=== PATIENT | male | born 1945 | race Caucasian/White ===

== ENCOUNTER 2020-06-12 10:29 | Emergency (ER) | payer MEDICARE, SELFPAY ==
--- NOTE | 2020-06-12 | ECG_ITS ---
Test Reason : PALPITATIONS Blood Pressure : / mmHG Vent. Rate : 088 BPM Atrial Rate : 088 BPM P-R Int : 144 ms QRS Dur : 088 ms QT Int : 334 ms P-R-T Axes : 077 -03 056 degrees QTc Int : 404 ms Normal sinus rhythm Possible Left atrial enlargement Borderline ECG No previous ECGs available Referred By: Terri Kang Electronically Signed By:TIERNEY ROMAN
[2020-06-12 10:36] VITALS: BP 143/85; PULSE 85; RESP 16; TEMP 36.7; O2SAT 100; BMI 22.7
--- NOTE | 2020-06-12 11:09 | XR_ITS ---
EXAMINATION: XR CHEST CLINICAL INFORMATION: Chest pain. COMPARISON: None. TECHNIQUE: Frontal view of the chest was obtained. FINDINGS: The lungs are well-expanded and clear of acute process. The heart size and pulmonary vascularity is normal. No gross bony abnormality seen. XR/XR chest 1V IMPRESSION: Unremarkable chest exam.
[2020-06-12 11:29] LABS: Basophils Absolute Auto 0.1 X10*3/uL (0.0-0.2); Basophils Percent Auto 0.7 % (0-2); Eosinophils Absolute Auto 0.2 X10*3/uL (0.0-0.4); Hematocrit 44.2 % (42-52); Hemoglobin 14.7 g/dl (14.0-18.0); Imm Gran Abs Auto 0.06 X10*3/uL (0.00-0.03); Imm Gran Pct Auto 0.9 % (0.0-0.4); Lymphocytes Absolute Auto 1.2 X10*3/uL (1.2-4.9); Lymphocytes Percent Auto 18.4 % (20-40); MANUAL DIFF FLAG NO; Mean Corpuscular HGB Conc 33.3 g/dl (31.0-36.0); Mean Corpuscular Hemoglobin 30.2 pg (27.0-33.0); Mean Corpuscular Volume 90.9 fL (80-98); Mean Platelet Volume 9.7 fL (9.4-12.4); Monocytes Absolute Auto 0.6 X10*3/uL (0.1-1.2); Monocytes Percent Auto 9.6 % (2-11); Neutrophils Absolute Auto 4.5 X10*3/uL (2.0-8.3); Neutrophils Percent Auto 67.4 % (45-73); Platelet Count 276 X10*3/uL (160-400); Red Blood Count 4.86 X10*6/uL (4.60-5.80); Red Cell Distribution Width 13.8 % (11.0-16.0); White Blood Count 6.7 X10*3/uL (4.8-10.8)
[2020-06-12 11:41] LABS: Prothrombin Time 11.5 SEC (10.8-13.0)
[2020-06-12 11:44] LABS: Partial Thromboplastin Time 32.8 SEC (24.1-38.0)
[2020-06-12 11:50] LABS: Glucose Urine UA NEG (NEG); Leukocyte Esterase Urine NEG (NEG); Nitrite Urine NEG (NEG); PH 5.5 (5.0-8.0); Specific Gravity - Urine >= 1.030 (1.005-1.025); Urine Blood NEG (NEG); Urine Ketones NEG (NEG); Urine Protein NEG (NEG-TRACE)
[2020-06-12 11:51] LABS: Appearance Urine CLEAR; Color Urine YELLOW
[2020-06-12 12:03] LABS: Alanine Aminotransferase 38 U/L (0-40); Albumin Level 4.2 g/dL (3.5-5.0); Alkaline Phosphatase 83 U/L (39-117); Anion Gap 12 (12-20); Aspartate Amino Transferase 24 U/L (5-37); Bilirubin Total 0.5 mg/dL (0.0-1.0); Blood Urea Nitrogen 19 mg/dL (9-16); Calcium 9.4 mg/dL (8.4-10.2); Carbon Dioxide 27 mmol/L (22-29); Chloride 104 mmol/L (96-108); Creatinine Clr Calc Pharmacy 71.8; Estimated Glomerular Filt Rate > 60; Glucose Random 94 mg/dL (60-115); Potassium 4.6 mmol/l (3.3-5.1); Sodium 138 mmol/L (135-145); Total Protein 6.7 g/dL (6.5-8.0)
[2020-06-12 12:03] LABS: Mucus Urine TRACE /LPF; RBC Urine 0 /HPF (0); Squamous Epithelial Cell Urine TRACE /LPF; WBC Urine 0 /HPF (0-4)
[2020-06-12 12:06] LABS: Influenza A PCR NEGATIVE (Negative); Influenza B PCR NEGATIVE (Negative); Resp Syncy Virus RNA Qual PCR NEGATIVE (Negative); SARS COV2 PCR INHOUSE NEGATIVE (Negative)
[2020-06-12 12:10] LABS: Troponin-I High Sensitivity < 3.5 ng/L (<3.5-35.0)
--- NOTE | 2020-06-12 12:34 | ED.GENADULT ---
HPI - General Adult General Chief complaint: General Medical Stated complaint: chest pain Time Seen by Provider: 06/12/20 10:36 Source: patient Mode of arrival: ambulatory Limitations: no limitations History of Present Illness HPI narrative: A 75-year-old male who describes himself as relatively healthy without any significant past medical history who states that he exercises on a regular bases runs about 1 hour in the morning in fact he ran 1 hours today who presents with complaint of substernal chest discomfort ongoing for the past 1 month or so states has not felt fully himself since he had a UTI about 2 years ago. Sometimes there is some epigastric indigestion and the discomfort has no associated aggravating/alleviating factors. Id states there is no shortness of breath when he runs for long distances. There is no nausea vomiting diarrhea. No abdominal pain. Onset (ago): month(s) Severity: mild Quality: aching Relieving factors: none Treatments prior to arrival: none Related Data Previous Rx's Medication Instructions Recorded omeprazole magnesium [Prilosec OTC] 20 mg PO BID 14 Days #28 tab 06/12/20 Allergies Allergy/AdvReac Type Severity Reaction Status Date / Time penicillin G Allergy Unknown Verified 03/01/19 00:00 Penicillins [PCN] Allergy Unknown HIVES Unverified 02/28/20 16:14 Review of Systems Review of Systems: Constitutional: No Weight loss, No Fever, No Chills, No Night Sweats, No Fatigue, No Malaise ENT/Mouth: No Hearing loss, No Ear Pain, No Nasal Congestion, No Sinus Pain, No Hoarseness, No sore throat, No Rhinorrhea, No Swallowing Difficulty Eyes: No Eye Pain, No Swelling, No Redness, No Foreign Body, No Discharge, No Vision Changes Cardiovascular: + Chest Pain, No SOB, No Dyspnea on Exertion, No Orthopnea, No Edema, No Palpitations Respiratory: No Cough, No Sputum, No Wheezing, No Smoke Exposure, No Dyspnea Gastrointestinal: No Nausea, No Vomiting, No Diarrhea, No Constipation, No abdominal Pain, No Hematochezia, No Melena Genitourinary: No Dysuria, No Urinary Frequency, No Hematuria, No Urinary Incontinence, No Urgency, No Flank Pain, No Urinary Flow Changes, No Hesitancy Musculoskeletal: No joint pain, No Myalgias, No Joint Swelling Skin: No Skin Lesions, No rash Neuro: No Weakness, No Numbness, No Paresthesias, No Loss of Consciousness, No Dizziness, No Headache Psych: No Social Issues Heme/Lymph: No Bruising, No Bleeding,No Lymphadenopathy Endocrine: No Polyuria, No Polydipsia, No Temperature Intolerance Yes all other systems are reviewed and are negative FOR[facility] Past Medical History Medical History (Updated 06/12/20 @ 13:12 by Edwar Reyes NP) No known health problems Social History Social History Alcohol intake: never Smoked in Last 30 Days: No Use of substances other than those prescribed or required for medical reasons: No Advance Directives: No Advance Directives Information Provided: No Physical Exam Vital Signs: Vital Signs: Last Vital Signs Temp 98.0 F 06/12/20 10:36 Pulse 85 06/12/20 10:36 Resp 16 06/12/20 10:36 BP 143/85 H 06/12/20 10:36 Pulse Ox 100 06/12/20 10:36 Body Mass Index 22.7 Reviewed Const: General: cooperative and healthy appearing; No acute distress or intoxicated appearing Nutritional Appearance: average body habitus Orientation/consciousness: patient oriented x3 HENMT: Head: Yes normal to inspection Ears: hearing grossly normal bilaterally Eyes: General: appearance normal, both eyes and all related structures Visual Mckeon: normal visual mckeon by confrontation Neck: Neck: Yes normal visual inspection, No positive Brudzinski's sign, No positive Kernig's sign and No tender Thyroid: Thyroid normal Chest: Chest palpation & inspection: normal inspection of the chest Resp: Effort & Inspection: normal respiratory effort Auscultation: clear to auscultation bilaterally Cardio: Jugular venous distension: no JVD Rhythm: regular rhythm Heart sounds: S1 normal heart sound present and S2 normal heart sound present GI: Inspection: Yes normal to inspection Palpation (GI): Soft to palpation Percussion: Yes normal to percussion Auscultation: normal bowel sounds : General: Yes no CVA tenderness Back/Spine/Pelvis: Back: no CVA tenderness Skin: General skin exam: no rashes or lesions noted Neuro: General: patient oriented x3 Extrem: General: Yes normal to inspection Course Course Course Narrative: Labs stable. D-dimer negative. Electrolytes without acute derangement. Tropes negative. D-dimer negative. SARSII/influenza/RSV negative. Will try short course PPI Instrum for close outpatient follow-up return follow-up instructions provided. Feels comfortable place. No acute discomfort to stay. Stable for discharge. Medical Decision Making MDM Narrative Medical decision making narrative: Labs, EKG, chest x-ray, COVID panel. Differential includes but not limited to musculoskeletal strain, costochondritis, ACS, PE less likely, cholelithiasis, gastroesophageal reflux disease. Lab Data Result diagrams: 06/12/20 11:21 06/12/20 11:21 Labs: Lab Results 06/12/20 06/12/20 06/12/20 Range/Units 11:15 11:16 11:20 WBC (4.8-10.8) X10*3/uL RBC (4.60-5.80) X10*6/uL Hgb (14.0-18.0) g/dl Hct (42-52) % MCV (80-98) fL MCH (27.0-33.0) pg MCHC (31.0-36.0) g/dl RDW (11.0-16.0) % Plt Count (160-400) X10*3/uL MPV (9.4-12.4) fL Immature Gran % (Auto) (0.0-0.4) % Neut % (Auto) (45-73) % Lymph % (Auto) (20-40) % [place] % (Auto) (2-11) % Eos % (Auto) (0-4) % Baso % (Auto) (0-2) % Lymph # (Auto) (1.2-4.9) X10*3/uL [place] # (Auto) (0.1-1.2) X10*3/uL Eos # (Auto) (0.0-0.4) X10*3/uL Baso # (Auto) (0.0-0.2) X10*3/uL Abs Immat Gran (auto) (0.00-0.03) X10*3/uL Absolute Neuts (auto) (2.0-8.3) X10*3/uL Absolute Nucleated RBC (0.0-0.012) X10*3/uL Nucleated RBC % (auto) (0.0-0.2) /100WBC PT (10.8-13.0) SEC INR (0.9-1.1) APTT (24.1-38.0) SEC D-Dimer NG/ML Sodium (135-145) mmol/L Potassium (3.3-5.1) mmol/l Chloride (96-108) mmol/L Carbon Dioxide (22-29) mmol/L Anion Gap (12-20) BUN (9-16) mg/dL Creatinine (0.5-1.4) mg/dL Estim Creat Clear Calc Estimated GFR Random Glucose (60-115) mg/dL Calcium (8.4-10.2) mg/dL Total Bilirubin (0.0-1.0) mg/dL AST (5-37) U/L ALT (0-40) U/L Alkaline Phosphatase (39-117) U/L Troponin I High Sens < 3.5 (<3.5-35.0) ng/L Total Protein (6.5-8.0) g/dL Albumin (3.5-5.0) g/dL Urine Color YELLOW Urine Appearance CLEAR Urine pH 5.5 (5.0-8.0) Ur Specific [place] >= 1.030 H (1.005-1.025) Urine Protein NEG (NEG-TRACE) MG/DL Urine Glucose (UA) NEG (NEG) MG/DL Urine Ketones NEG (NEG) MG/DL Urine Blood NEG (NEG) Urine Nitrite NEG (NEG) Ur Leukocyte Esterase NEG (NEG) Urine RBC 0 (0) /HPF Urine WBC 0 (0-4) /HPF Ur Squamous Epith Cells TRACE /LPF Urine Bacteria NONE /LPF Urine Mucus TRACE /LPF Coronavirus (PCR) NEGATIVE (Negative) Influenza Type A (PCR) NEGATIVE (Negative) Influenza Type B (PCR) NEGATIVE (Negative) RSV RNA Qual (PCR) NEGATIVE (Negative) 06/12/20 06/12/20 06/12/20 Range/Units 11:21 11:21 11:21 WBC 6.7 (4.8-10.8) X10*3/uL RBC 4.86 (4.60-5.80) X10*6/uL Hgb 14.7 (14.0-18.0) g/dl Hct 44.2 (42-52) % MCV 90.9 (80-98) fL MCH 30.2 (27.0-33.0) pg MCHC 33.3 (31.0-36.0) g/dl RDW 13.8 (11.0-16.0) % Plt Count 276 (160-400) X10*3/uL MPV 9.7 (9.4-12.4) fL Immature Gran % (Auto) 0.9 H (0.0-0.4) % Neut % (Auto) 67.4 (45-73) % Lymph % (Auto) 18.4 L (20-40) % [place] % (Auto) 9.6 (2-11) % Eos % (Auto) 3.0 (0-4) % Baso % (Auto) 0.7 (0-2) % Lymph # (Auto) 1.2 (1.2-4.9) X10*3/uL [place] # (Auto) 0.6 (0.1-1.2) X10*3/uL Eos # (Auto) 0.2 (0.0-0.4) X10*3/uL Baso # (Auto) 0.1 (0.0-0.2) X10*3/uL Abs Immat Gran (auto) 0.06 H (0.00-0.03) X10*3/uL Absolute Neuts (auto) 4.5 (2.0-8.3) X10*3/uL Absolute Nucleated RBC 0.000 (0.0-0.012) X10*3/uL Nucleated RBC % (auto) 0.0 (0.0-0.2) /100WBC PT 11.5 (10.8-13.0) SEC INR 1.0 (0.9-1.1) APTT 32.8 (24.1-38.0) SEC D-Dimer < 200 NG/ML Sodium 138 (135-145) mmol/L Potassium 4.6 (3.3-5.1) mmol/l Chloride 104 (96-108) mmol/L Carbon Dioxide 27 (22-29) mmol/L Anion Gap 12 (12-20) BUN 19 H (9-16) mg/dL Creatinine 0.93 (0.5-1.4) mg/dL Estim Creat Clear Calc 71.8 Estimated GFR > 60 Random Glucose 94 (60-115) mg/dL Calcium 9.4 (8.4-10.2) mg/dL Total Bilirubin 0.5 (0.0-1.0) mg/dL AST 24 (5-37) U/L ALT 38 (0-40) U/L Alkaline Phosphatase 83 (39-117) U/L Troponin I High Sens (<3.5-35.0) ng/L Total Protein 6.7 (6.5-8.0) g/dL Albumin 4.2 (3.5-5.0) g/dL Urine Color Urine Appearance Urine pH (5.0-8.0) Ur Specific [place] (1.005-1.025) Urine Protein (NEG-TRACE) MG/DL Urine Glucose (UA) (NEG) MG/DL Urine Ketones (NEG) MG/DL Urine Blood (NEG) Urine Nitrite (NEG) Ur Leukocyte Esterase (NEG) Urine RBC (0) /HPF Urine WBC (0-4) /HPF Ur Squamous Epith Cells /LPF Urine Bacteria /LPF Urine Mucus /LPF Coronavirus (PCR) (Negative) Influenza Type A (PCR) (Negative) Influenza Type B (PCR) (Negative) RSV RNA Qual (PCR) (Negative) Imaging Data Chest x-ray: Radiologist's impression: Hang Dominguez 75 M [address] [place] [address] XRay Report Signed Patient: Hang DominguezMR#: [id number] : 7Acct:[id number] Age/Sex: 75 / MADM Date: 06/12/20 Loc: .ED Attending Dr: Ordering Physician: Edwar Reyes NP Date of Service: 06/12/20 Procedure(s): XR chest 1V Accession Number(s): [id number] cc: Edwar Reyes [employer]ACHINE~ EXAMINATION: XR CHEST CLINICAL INFORMATION: Chest pain. COMPARISON: None. TECHNIQUE: Frontal view of the chest was obtained. FINDINGS: The lungs are well-expanded and clear of acute process. The heart size and pulmonary vascularity is normal. No gross bony abnormality seen. XR/XR chest 1V IMPRESSION: Unremarkable chest exam. Dictated By:MARLIN WISDOM MD Signed By:<Electronically signed by MARLIN WISDOM MD in OV>06/12/20 1135 DD/ 1109 TD/TT: Staple Side Laster: KAYLYN ECG Data Interpretation: No sinus rhythm Rate 77 IN interval within normal limits No acute ST segment changes No previous Discharge Plan Discharge Clinical Impression: Atypical chest pain Patient Disposition: Home, Self-Care Instructions: Chest Pain (ED) Additional Instructions: Big Arm diet Small portions Increase fiber intake Avoid any carbonated drinks, caffeine Trial short course antacid medication (Prilosec) as prescribed Follow-up as instructed Return if any concerns or worsening symptoms Thank you Prescriptions: New omeprazole magnesium [Prilosec OTC] 20 mg tablet,delayed release (DR/EC) 20 mg PO BID 14 Days Qty: 28 RF: 0 Referrals: Richard Rondon MD [Primary Care Provider] - 1 week Discharge Date/Time: 06/12/20 13:24
[2020-06-12 13:01] LABS: D Dimer < 200 NG/ML
== END 2020-06-12 13:24 | disposition home or self-care (01) ==
PROVIDERS: Nurse Practitioner Primary Care; Emergency Provider Emergency Medicine Emergency Medical Services; PCP Internal Medicine
DX: R07.89 Other chest pain (principal); Z20.828 Contact with and (suspected) exposure to other viral communicable diseases; Z79.899 Other long term (current) drug therapy
CPT/HCPCS: 0241U; 36415; 71045; 80053; 81001; 84484; 85025; 85379; 85610; 85730; 93005; 99283; 99284

== ENCOUNTER 2024-12-31 08:10 | Outpatient (REF) | payer MEDICARE, SELFPAY ==
--- NOTE | ~2024-12-31 | XR_ITS ---
EXAMINATION: XR HIP 2 OR MORE VIEWS LEFT HISTORY: M25.552 - Pain in left hip COMPARISON: There are no prior studies available for comparison. FINDINGS: A single AP view of the pelvis and two views of the left hip are submitted. Osseous mineralization is normal. There is no fracture or dislocation. The joint space is maintained. The soft tissues are unremarkable. There is degenerative disc disease of the spine. XR/XR hip LT min 2V IMPRESSION: Unremarkable examination of the left hip. Electronically signed by: Luciano Thompson MD 12/31/2024 01:21 PM EDT
--- OUTSIDE RECORDS SUMMARY | 2025-01-01 08:15 | XMS_ITS | Clinical Summary ---
Author Organization [address] [address] Phone Care Team Providers Care Salesperson Pets [employer] Pet Supplies Name Role Phone Unavailable Primary Care Provider [...]
--- OUTSIDE RECORDS SUMMARY | 2025-01-01 08:15 | XMS_ITS | Patient Health Record ---
Author Organization [facility] Address [address] [place] [address] Care Team Providers Care Residential Interior Designer Name Role Phone Stanislaw Grace Jr Reason For Referral No Information Plan Of Treatment No Information
--- OUTSIDE RECORDS SUMMARY | 2025-01-01 08:16 | XMS_ITS | Clinical Summary ---
Author Organization [facility] Address [address] [place] [address] Phone Care Team Providers Care Senior Field Engineer Name Role Phone Richard Rondon MD Primary Care Provider [phone] Allergies Active Allergy Reactions Criticality Noted Date [...] topic Medical Devices Not on file Insurance [facility] MEDICARE REPLACEMENT Member Subscriber Plan / Payer (Ef fective 2018-Present) Name:Hang Dominguez Relation to Subscriber:Self Name:MehnazankitHang singleton Payer ID:[id number] (NAIC) Type:Medicare Address: [place] [id number] [place] [id number] [facility] MEDICARE REPLACEMENT Member Subscriber Plan / Payer (Ef fective 2018-Present) Name:Hang Dominguez Relation to Subscriber:Self Name:Hang Dominguez Payer ID:[id number] (NAIC) Type:Medicare Address: [place] [id number] [place] [id number] [facility] MEDICARE REPLACEMENT [facility] MEDICARE REPLACEMENT [facility] AARP MEDICARE REPLACEMENT Care Teams Senior Field Engineer Relationship Specialty Start Date End Date Richard Rondon MD [address] [place] [phone] PCP - General Internal Medicine 03/09/19 Additional Source Comments The information contained in this document represents components of the legal health record. It is not the complete legal health record.[facility]
--- OUTSIDE RECORDS SUMMARY | 2025-01-01 08:16 | XMS_ITS | Clinical Summary ---
Author Organization [facility] [address] [place] [address] [place] [phone] Phone Care Team Providers Care Political Organizer Name Role Phone Pilo Hart MD Primary [...] 9:15 AM EDT Office Visit Adult Medicine [address] [phone] Pilo Hart MD Arthritis of left sacroiliac joint ([facility] V24) (Primary Dx); Gastroesophageal reflux disease [...] Site/Laterality Comments KNEE ARTHROSCOPY W/ DEBRIDEMENT PROCEDURE: [facility] ARTH[facility] KNEE DEBRIDEMENT/SHAVING ARTCLR CRTLG; COMMENT: both knees OTHER SURGICAL HISTORY PROCEDURE: [facility] OPPONENSPLASTY SUPFCIS TDN TR TYP EA TDN [...] Description 02/19/2025 9:10 AM EDT Office Visit [facility] - [facility] [address] [facility] [address] [place] [address] Violetta Dorantes NP [address] [place] [address] 05/06/2025 11:30 AM EST Office Visit Adult Medicine [facility] [address] [place] [address] Pilo Hart MD [address] [place] [address] Health Maintenance Due Date Last Done Comments [...] hemorrhage Mixed hyperlipidemia Prediabetes Simple chronic bronchitis ([facility]/HCC V24, [facility]/HCC V28) Basal cell carcinoma (BCC), unspecified site [...] LAB CHEMISTRY METHOD 05/02/2024 12:[address] [facility] Triglycerides 103 0 - 150 mg/dL LAB CHEMISTRY METHOD 05/02/2024 12:[address] [facility] HDL 80 >=40 mg/dL LAB CHEMISTRY METHOD 05/02/2024 12:[address] [facility] LDL Calculated 140(H) 0 - 100 mg/dL LAB CHEMISTRY METHOD 05/02/2024 12:51 PM [facility] VLDL Cholesterol Deonte 20.6 mg/dL LAB CHEMISTRY METHOD 05/02/2024 12:[address] [facility] Non HDL Chol. (LDL+VLDL) 161(H) <145 mg/dL LAB CHEMISTRY METHOD 05/02/2024 12:[address] [facility] Chol/HDL Ratio 3.0 0.0 - 4.4 LAB CHEMISTRY METHOD 05/02/2024 12:51 PM [facility] Blood Venous blood specimen / Unknown Venipuncture / Unknown 05/02/2024 9:35 AM EST 05/02/2024 9:35 AM EST Pilo Hart MD LAB BLOOD ORDERABLES Final Result [facility] [address] [place] [address], * Hepatitis C Screening (10/11/2013) [facility] Hepatitis C Screening abstracted Liana Provider HEALTH MAINTENANCE Final Result from Last 3 Months or Most Recently Relevant to Health Maintenance Insurance [employer] MEDICARE ADVANTAGE Care Teams Political Organizer Relationship Specialty Start Date End Date Pilo Hart MD [address] [place] [address] PCP - General Internal Medicine 10/29/21
== END 2024-12-31 08:11 | disposition home or self-care (01) ==
LOC: HO.HOSX 08:10
PROVIDERS: Visit Provider Physician Assistant
DX: M25.552 Pain in left hip (principal)
CPT/HCPCS: 73502; 99202

== ENCOUNTER 2024-12-31 12:46 | Outpatient (AMB) | payer MEDICARE, SELFPAY ==
--- NOTE | 2024-12-31 12:57 | MHC.OFFVIS ---
Vital Signs 12/31/24 13:11 Height 5 ft 10 in Weight 158 lb BMI 22.7 Intake Visit Reasons: [employer]- Left hip pain, arthritis of left SI joint Intake Note: Hang is a 79 year old male who presents today as a new patient to evaluate his left hip pain. Patient was seen by his PCP with complaints of hip pain, tenderness over his left SI joint, an x-ray was ordered and referred to orthopedics. He was recommended to use Tylenol as needed and prescribed Diclofenac topical cream. Patient reports cream has been helping with his pain. His pain is mostly located at the posterior aspect of hip and at times that lateral aspect with running. Patient reports that he is constantly active. States the past 10-15 years he has been having tenderness in his SI joint. His most discomfort comes with getting up in the mornings. He would like to discuss his x-rays results and exercises. No other treatment. He mentions that he played football as a child and was often hit on his left side. Allergies Penicillins (PCN) Allergy (Unknown, Unverified 12/31/24 13:06) HIVES- as a child Medication List - Last Reconciled 12/31/24 by Jalil Neff PA-C diclofenac sodium 1% 2 grams topical BID omeprazole magnesium (Prilosec OTC) 20 mg PO BID 14 days HPI HPI [employer]- Left hip pain, arthritis of left SI joint: Details: 79 yo male who presents to the office today for s/o si joint pain. He states the pain has been present for many years. He states he is quite active but this pain is causing some limitations with activities such as cycling or running. He feels the pain is worse in the morning and then as he loosens up throughout the day his pain improves. The pain is specifically on the left-side SI joint. He denies numbness or tingling. He denies groin pain. FORMERLY [facility] Medical History (Updated 12/31/24 @ 13:29 by Jalil Neff PA-C) No known health problems Surgical History (Updated 12/31/24 @ 13:09 by BRYCE Ruiz) Hx of arthroscopy of knee Social History (Updated 12/31/24 @ 13:09 by BRYCE Ruiz) Alcohol intake: never Patient Tobacco Use Status: Never used Tobacco Current occupational status: retired Review of Systems Const All systems reviewed & are unremarkable except as noted in HPI and below Physical Exam Vital Signs: BMI result Body Mass Index 22.7 Const General: cooperative and no acute distress Orientation/consciousness: patient oriented x3 Resp Effort & Inspection: normal respiratory effort and able to speak in complete sentences Cardio Peripheral pulses: Peripheral pulses 2+ throughout Neuro General: patient oriented x3 Extrem Other: No specific tenderness to palpation today on exam. Full flexion extension without pain or limitations. Rotation without pain. Results Reviewed Results Reviewed: X-rays of the left hip obtained in the office today and reviewed by me do show some evidence of lumbar degenerative changes. Assessment & Plan Assessment & Plan (1) Sacroiliac joint dysfunction of left side: Code(s): M53.3 - Sacrococcygeal disorders, not elsewhere classified Category: Medical Plan: I explained to the patient the findings on his x-rays which are significant for some degenerative changes of the lumbar spine. With that, I did encourage him to begin a course of physical therapy to work on some strengthening and stabilization techniques. I also explained to him with the exercises he engages in such as running that is a very load bearing exercise which can put a lot of strain on the low back. I encouraged him to work on exercises that promote good mechanics for activities such as running and cycling. He is interested in following up in 6 months to have repeat x-rays to see if there is any progression in his arthritis. I recommend he see Dr. Rosas for further assessment if that is the case. He did agree. Orders: Orders XR hip LT min 2V Today M25.552 - Pain in left hip PT Evaluation and Treatment Today M53.3 - Sacrococcygeal disorders, not elsewhere classified Coding Level of Care Code New Pt Level 3 (75107) Complex EM visit Add On G2211 Diagnoses Sacroiliac joint dysfunction of left side M53.3
[2024-12-31 13:11] VITALS: BMI 22.7
--- OUTSIDE RECORDS SUMMARY | 2024-12-31 13:27 | XMS_ITS | Clinical Summary ---
Author Organization [address] [address] Phone Care Team Providers Care Gemologist Name Role Phone Unavailable Primary Care Provider Unavailabl e Social History Tobacco Use Types Packs/Day Years Used Date Smoking Tobacco: Never Assessed Sex and Gender Information Value Date Recorded Sex Assigned at Not on file Legal Sex Male 9:26 AM EDT Gender Identity Not on file Sexual Orientation Not on file Plan of Treatment Health Maintenance Due Date Last Done Comments HIV screening 1960 Hepatitis C screening 1965 Lipid disorder screening 1987 Diabetes screening 1992 Pneumococcal Vaccine (50+ years) (1 of 1 - PCV) 1997 Shingles vaccine (Shingrix) (1 of 2 - Shingrix (RZV) 2 Dose Standard Series) 1997 RSV Immunization (1 - 1-dose 75+ series) 2022 Covid-19 vaccine series ( - season) 2024 Influenza vaccine 02/11/2025 04/13/2018, , 04/18/2008, Additional history exists Tetanus adult (Td q 10,TDAP once) 05/13/2025 05/13/2015 Colon cancer screening, Colonoscopy Discontinued Meningococcal Vaccine Aged Out No sancho elsie eligible based on patient's age to complete this topic
--- OUTSIDE RECORDS SUMMARY | 2024-12-31 13:27 | XMS_ITS | Clinical Summary ---
Author Organization [facility] [address] [place] [address] [place] [phone] Phone Care Team Providers Care Special Forces Senior Sergeant Name Role Phone Pilo Hart MD Primary Care Provider Allergies Active Allergy Reactions Criticality Noted Date Comments Penicillin G Potassium Hives,Rash 06/28/2007 Medications melatonin 5 mg tablet Take 1 tablet (5 mg total) by mouth at bedtime. Active fluticasone propionate (FLONASE) 50 mcg/actuation nasal spray Administer 2 sprays into each nostril 1 (one) time each day. Active omeprazole (PRILOSEC) 20 mg tablet,delayed release (DR/EC) Take 1 tablet (20 mg total) by mouth 1 (one) time each day. 0 Active diclofenac (VOLTAREN) 1 % topical gel Apply 2 g topically 2 (two) times a day. 100 g 3 5 Active albuterol HFA (PROAIR HFA ; PROVENTIL HFA ; VENTOLIN HFA) 90 mcg/actuation inhaler Inhale 2 puffs by mouth every 6 (six) hours if needed for wheezing or shortness of breath (cough). 6.7 g 2 5 Active Active Problems Problem Noted Date Diagnosed Date Gastroesophageal reflux disease without esophagi tis 10/28/2024 Chronic bronchitis (CMS/HCC V24, CMS/HCC V28) Basal cell carcinoma (BCC) 10/28/2024 Prediabetes 10/28/2024 History of actinic keratosis 08/12/2023 Hyperlipidemia 07/11/2020 Assessment & Plan (05/01/2024 3:05 PM EST): Orders: Hemoglobin A1c; Future CBC and differential; Future Comprehensive metabolic panel; Future Lipid panel with reflex to direct LDL; Future Dysphagia 05/20/2016 Overview (08/12/2023): S/p EGD, esophageal ring, by Dr. Ledesma, 2016 Encounters Date Type Department Care Team Description 10/29/2024 9:15 AM EDT Office Visit Adult Medicine [address] [phone] Pilo Hart MD Arthritis of left sacroiliac joint ([facility] V24) (Primary Dx); Gastroesophageal reflux disease without esophagitis; Chronic bronchitis, unspecified chronic bronchitis type (CMS/HCC V24, CMS/HCC V28); Mixed hyperlipidemia; Basal cell carcinoma (BCC), unspecified site; Screening for prostate cancer from Last 3 Months Immunizations Name Administration Dates Next Due H1N1 Inj Preservative Free 06/19/2009 Hepatitis A Adult (Havrix; V aqta) 19yo and older 04/23/2021,05/13/2015,02/04/2003 Influenza Quadravalent, MDCK , 0.5ml, with preservative (Flucelvax) 6mo and older 04/13/2018 Influenza trivalent, 0.5mL ( Fluzone High-dose) 65yo and older 05/03/2022 Influenza trivalent, with pr eservative (Fluzone; Afluria) 6mo and older 06/19/2009,04/18/2008,06/28/2007 Moderna SARS-CoV-2 COVID-19, mRNA, LNP-S, preservative free 04/23/2021 PPD Test 06/19/2009 Pneumococcal polysaccharide 23 valent (Pneumovax 23) 2yo and older 05/03/2022 Td Tetanus diptheria (Tdvax) 7yo and older 06/28 Td Tetanus diptheria, preser vative free (Tenivac) 7yo and older 10/29/2024 Tdap Tetanus diptheria acell ular pertussis (Boostrix; Adacel) 7yo and older 05/13/2015 Tetanus Toxoid, Unspecified 02/04/2003 Typhoid VICPS (Typhim Vi) 2yo and older 05/13/20 15 Surgical History Surgery Date Site/Laterality Comments KNEE ARTHROSCOPY W/ DEBRIDEMENT PROCEDURE: [place] ARTHRS KNEE DEBRIDEMENT/SHAVING ARTCLR CRTLG; COMMENT: both knees OTHER SURGICAL HISTORY PROCEDURE: [place] OPPONENSPLASTY SUPFCIS TDN TR TYP EA TDN Medical History Medical History Date Comments Dysphagia 05/20/2016 DX:Dysphagia; CO MMENT: S/p EGD, esophageal ring, by Dr. Ledesma, 2016 History of actinic keratoses 02/12/2014 DX: History of actinic keratoses; COMMENT: Actinic keratosis 02/24 right ear (hypertrophic) Actinic keratoses Dysphagia Hyperlipidemia Schatzki ring of distal esophagus Family History Medical History Relation Name Comments Melanoma Brother Squamous cell carcinoma Father left ear with lymph node involvement No Known Problems Mother 93 Relation Name Status Comments Brother Father Mother Social History Tobacco Use Types Packs/Day Years Used Date Smoking Tobacco: Never Smokeless Tobacco: Never Tobacco Cessation:Counseling Given: Not Answered Alcohol Use Standard Drinks/Week Comments Yes 2 (1 standard drink = 0.6 oz pur e alcohol) Interpersonal Safety Answer Date Record ed Physical Abuse 08/06/2024 Verbal Abuse 08/06/2024 Sex and Gender Information Value Date Recorded Sex Assigned at Male 08/03/2024 4:42 PM EST Legal Sex Male 11:04 AM EST Gender Identity Male 08/03/2024 4:42 PM EST Sexual Orientation Straight 08/03/2024 4: 42 PM EST Obstetrics History Last Filed Vital Signs Vital Sign Reading Time Taken Comments Blood Pressure 124/86 10/29/2024 9:00 AM EDT Pulse 75 10/29/2024 9:00 AM EDT Temperature 36.6 C (97.9 F) 10/29/2024 9:00 AM EDT Respiratory Rate 16 10/29/2024 9:00 AM EDT Oxygen Saturation 97% 08/06/2024 3:39 PM EST Inhaled Oxygen Concentration - - Weight 74.8 kg (165 lb) 10/29/2024 9:00 AM EDT Height 177.8 cm (5' 10 ) 10/29/2024 9:00 AM EDT Body Mass Index 23.68 10/29/2024 9:00 AM EDT Plan of Treatment Upcoming Encounters Date Type Department Care Team (Late st Contact Info) Description 02/19/2025 9:10 AM EDT Office Visit [facility] [address] [facility] [address] [place] [address] Violetta Dorantes NP [address] [place] [address] 05/06/2025 11:30 AM EST Office Visit Adult Medicine [facility] [address] [place] [address] Pilo Hart MD [address] [place] [address] Health Maintenance Due Date Last Done Comments RSV Immunization Adult Patients (1 - 1-dose 75+ series) 2022 Social Influencers of Health Screening 05/22/2022 Zoster Vaccines (2 of 2) 08/20/2022 06/25/2022, 0510/2016 Depression Screening 06/13/2024 05/01/2024 COVID-19 Vaccine (6 - Moderna risk 2023- season) 2024 03/25/2024, 06/25/2022, 04/23/2021, Additional history exists Influenza Vaccine (#1) 2025 , 05/03/2022, 04/23/2021, Additional history exists Medicare Annual Wellness Visit 05/01/2025 05/01/2024 Falls Risk Assessment 08/06/2025 08/06/2024, 022 Cholesterol Screening (Lipid Panel) 05/02/2029 05/02/2024, 05/03/2022, 05/03/2022 DTaP,Tdap,and Td Vaccines (4 - Td or Tdap) 10/29/2034 10/29/2024, 05/13/2015, 06/28/2007 Hepatitis C Screening Completed 10/11/2013 Hepatitis A Vaccines Aged Out 04/23/2021, 05/13/2015, 02/04/2003 No longer eligible based on patient's age to complete this topic Pneumococcal Vaccine: 50+ Years Completed 05/03/2022, 04/02/2020, 02/06/2016 HIB Vaccines Aged Out No longer eligi ble based on patient's age to complete this topic HPV Vaccines Aged Out No longer eligi ble based on patient's age to complete this topic Hepatitis B Vaccines Aged Out No long er eligible based on patient's age to complete this topic IPV Vaccines Aged Out No longer eligi ble based on patient's age to complete this topic MMR Vaccines Aged Out No longer eligi ble based on patient's age to complete this topic Meningococcal ACWY Vaccine Aged Out N o longer eligible based on patient's age to complete this topic Meningococcal B Vaccine Aged Out No l onger eligible based on patient's age to complete this topic RSV Immunization Patients Under 20 months Aged Out No longer eligible based on patient's age to complete this topic Varicella Vaccines Aged Out No longer eligible based on patient's age to complete this topic Procedures Procedure Name Priority Date/Time Associated Diagnosis Comments LIPID PANEL WITH REFLEX TO DIRECT LDL Routine 05/02/2024 9:35 AM EST Gastroesophageal reflux disease with esophagitis without hemorrhage Mixed hyperlipidemia Prediabetes Simple chronic bronchitis ([facility]/HCC V24, [facility]/HCC V28) Basal cell carcinoma (BCC), unspecified site Encounter for subsequent annual wellness visit (AWV) in Medicare patient Screening for prostate cancer Screening for deficiency anemia HEPATITIS C SCREENING Routine 10/11/2013 from Last 3 Months or Most Recently Relevant to Health Maintenance Results * (ABNORMAL) Lipid panel with reflex to direct LDL (05/02/2024 9:35 AM EST) Cholesterol 241(H) 0 - 200 mg/dL LAB CHEMISTRY METHOD 05/02/2024 12:51 PM EST [facility] Triglycerides 103 0 - 150 mg/dL LAB CHEMISTRY METHOD 05/02/2024 12:51 PM EST [facility] HDL 80 >=40 mg/dL LAB CHEMISTRY METHOD 05/02/2024 12:51 PM EST [facility] LDL Calculated 140(H) 0 - 100 mg/dL LAB CHEMISTRY METHOD 05/02/2024 12:51 PM [facility] VLDL Cholesterol Deonte 20.6 mg/dL LAB CHEMISTRY METHOD 05/02/2024 12:51 PM EST [facility] Non HDL Chol. (LDL+VLDL) 161(H) <145 mg/dL LAB CHEMISTRY METHOD 05/02/2024 12:51 PM EST [facility] Chol/HDL Ratio 3.0 0.0 - 4.4 LAB CHEMISTRY METHOD 05/02/2024 12:51 PM [facility] Blood Venous blood specimen / Unknown Venipuncture / Unknown 05/02/2024 9:35 AM EST 05/02/2024 9:35 AM EST Pilo Hart MD LAB BLOOD ORDERABLES Final Result [facility] [address] [place] [address], * Hepatitis C Screening (10/11/2013) [facility] Hepatitis C Screening abstracted Liana Provider HEALTH MAINTENANCE Final Result from Last 3 Months or Most Recently Relevant to Health Maintenance Insurance [employer] MEDICARE ADVANTAGE Care Teams Special Forces Senior Sergeant Relationship Specialty Start Date End Date Pilo Hart MD [address] [place] [address] PCP - General Internal Medicine 10/29/21
--- OUTSIDE RECORDS SUMMARY | 2024-12-31 13:27 | XMS_ITS | Patient Health Record ---
Author Organization [facility] Address [address] [place] [address] Care Team Providers Care Criminal Researcher Name Role Phone Stanislaw Grace Jr Reason For Referral No Information Plan Of Treatment No Information
--- OUTSIDE RECORDS SUMMARY | 2024-12-31 13:27 | XMS_ITS | Clinical Summary ---
Author Organization Located Within [facility] Address [address] [place] [phone] Phone Care Team Providers Care Enrollment Advisor Name Role Phone Richard Rondon MD Primary Care Provider [phone] Allergies Active Allergy Reactions Criticality Noted Date Comments Penicillin G Potassium Hives,Rash Low 06/28/2007 Medications ibuprofen (ADVIL,MOTRIN) 400 MG tablet Take 400 mg by mouth every 6 (six) hours as needed for pain (specific location in comments). Active Active Problems No known active problems Social History Tobacco Use Types Packs/Day Years Used Date Smoking Tobacco: Never Smokeless Tobacco: Never Alcohol Use Standard Drinks/Week Comments Yes 0 (1 standard drink = 0.6 oz pur e alcohol) rare Education Answer Date Recorded Are you interested in more education? Not on yeison e 10/08/2022 Are you concerned about learning? Not on file 10/08/2022 No 10/08/2022 No 10/08/2022 Digital Access Answer Date Recorded No 11/06/2022 No 11/06/2022 No 11/06/2022 Reliable internet access at home? Not on file 11/06/2022 Device with a working camera? Not on file Sex and Gender Information Value Date Recorded Sex Assigned at Not on file Legal Sex Male 7:46 AM EDT Gender Identity Not on file Sexual Orientation Not on file Last Filed Vital Signs Vital Sign Reading Time Taken Comments Blood Pressure - - Pulse - - Temperature - - Respiratory Rate - - Oxygen Saturation - - Inhaled Oxygen Concentration - - Weight 73.9 kg (163 lb) 04/19/2019 12:58 PM EST Height 177.8 cm (5' 10 ) 03/02/2019 8:10 AM EDT Body Mass Index 23.39 03/02/2019 8:10 AM EDT Plan of Treatment Health Maintenance Due Date Last Done Comments LIPID PANEL 1945 DEPRESSION SCREENING 1959 HEPATITIS C SCREENING 1965 ZOSTER VACCINES (2 of 3) 12/10/2016 10/15/2016 PNEUMOCOCCAL VACCINES (50+ years) (2 of 2 - PPSV23) 04/02/2021 04/02/2020, 02/06/2016 RSV VACCINE (1 - 1-dose 75+ series) 2022 COVID-19 VACCINE (2 - 2023-2 5 season) 2024 08/18/2020 Adult Td,Tdap Booster 05/13/2025 05/13/2015 , 06/28/2007 HEPATITIS A VACCINES Aged Out 05/13/2015, 02/04/2003 No longer eligible based on patient's age to complete this topic SMOKING STATUS SCREENING (On ce After 26 Yrs) Completed 04/19/2019 HIB VACCINES Aged Out No longer eligi ble based on patient's age to complete this topic MENINGOCOCCAL VACCINES (ACWY) Aged Out No longer eligible based on patient's age to complete this topic MENINGOCOCCAL VACCINES (B) Aged Out N o longer eligible based on patient's age to complete this topic Medical Devices Not on file Insurance [facility] MEDICARE REPLACEMENT Member Subscriber Plan / Payer (Ef fective 2018-Present) Name:Hang Dominguez Relation to Subscriber:Self Name:MehnazankitHang singleton Payer ID:[id number] (NAIC) Type:Medicare Address: [place] [id number] [place] [id number] [facility] MEDICARE REPLACEMENT Member Subscriber Plan / Payer (Ef fective 2018-Present) Name:Hang Dominguez Relation to Subscriber:Self Name:Hang Dominguez Payer ID:[id number] (NAIC) Type:Medicare Address: [place] [id number] [place] [id number] [facility] MEDICARE REPLACEMENT [facility] MEDICARE REPLACEMENT [id number] AARP MEDICARE REPLACEMENT Care Teams Enrollment Advisor Relationship Specialty Start Date End Date Richard Rondon MD [address] [place] [phone] PCP - General Internal Medicine 03/09/19 Additional Source Comments The information contained in this document represents components of the legal health record. It is not the complete legal health record.Located Within [facility]
== END 2024-12-31 13:36 | disposition home or self-care (01) ==
LOC: HO.HOS 12:47
PROVIDERS: PCP Internal Medicine; Visit Provider Physician Assistant
DX: M53.3 Sacrococcygeal disorders, not elsewhere classified (principal)
CPT/HCPCS: 99203; G2211

== ENCOUNTER → 2024-12-31 12:50 | Outpatient (BNV) | payer MEDICARE, SELFPAY | PROVIDERS: Visit Provider Radiology Diagnostic Radiology | DX: M25.552 Pain in left hip (principal) | CPT/HCPCS: 73502 ==